=== PATIENT | male | born 1985 | race Caucasian/White ===

== ENCOUNTER 2023-03-29 10:57 | Outpatient (AMB) | payer OTHER, SELFPAY ==
--- NOTE | 2023-03-29 10:59 | MHC.OFFVIS ---
Intake Intake Visit Reasons: Testicular pain Intake Note: NEW Patient presents today to established treatment for: Testicular Pain Meds- None Allergies to Antibiotic- No Known Allergies Blood Thinner- None Patient Symptoms: Patient stated he has left testicular pain Tube Builder Required: No Accompanied by: Self / Same As Patient Allergies NKDA Allergy (Unknown, Uncoded 03/29/23 11:11) Unknown Medication List - Last Reconciled 03/29/23 by Brandon Mcnamara MD No Known Home Meds HPI HPI Comments History of Present Illness Details Hira is a 37-year-old male who is here for evaluation with complaints of testicular pain. He denies history of STDs, he states had 1 episode of gross hematuria about 8 years ago and was seen in the emergency room and had CT scan imaging which was within normal limits. Was told it was related to running, at that time he had been running a few miles daily. He denies prior UTIs or urethritis. Has history of vasectomy about 2017 Dr. Villegas, describes some mild swelling postoperatively which resolved. He states that the testicular pain started summer dull ache which is intermittent left greater than right. Urinalysis negative leukocytes negative blood Examination: Testicles palpated no discrete masses palpated no signs of infection Plan scrotal ultrasound [facility] Medical History Thoracic back pain Sinusitis Throat irritation Hypercholesterolemia Tinea corporis Paresthesia Surgical History Hx of LASIK History of vasectomy History of wisdom tooth extraction Family History Father Hypercholesterolemia HTN (hypertension) Mother No problems noted. 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 Review of Systems Const All systems reviewed & are unremarkable except as noted in HPI and below Reports no additional complaints Eyes Reports no additional complaints ENT Reports no additional complaints Card Denies dyspnea Resp Denies cough and Denies dyspnea GI Reports no additional complaints Musc Reports no additional complaints Skin/Breast Denies rash and Denies unusual bruising Neuro Reports no additional complaints Psych Reports no additional complaints Endo Reports no additional complaints Mc/Lymph Reports no additional complaints Aller/Immun Reports no additional complaints Physical Exam Const General: healthy appearing, no acute distress and well developed Orientation/consciousness: patient oriented x3 HEENT Head: Yes normocephalic and Yes atraumatic Eyes Conjunctivae: conjunctivae normal Neck Neck: Yes normal visual inspection Chest Chest palpation & inspection: normal inspection of the chest Resp Effort & Inspection: normal respiratory effort Cardio Rate: regular rate GI Inspection: Yes normal to inspection Palpation (GI): Soft to palpation Other: Bilateral Testicles nontender to palpation Penis: normal penis and circumcised Scrotum: scrotum normal Skin General skin exam: no rashes or lesions noted Neuro General: patient oriented x3 Extrem General: No pedal edema Psych Appearance: grossly normal Affect: normal affect Results AMB Urinalysis, Automated UA Leukoctes 0 Abilio/uL Last Edit by Sho Brown [facility] on 03/29/23 11:23 UA Nitrite Negative Last Edit by Sho Brown [facility] on 03/29/23 11:23 UA Urobilinogen 0.2 mg/dL Last Edit by Sho Brown [facility] on 03/29/23 11:23 UA Protein 0 mg/dL Last Edit by Sho Brown [facility] on 03/29/23 11:23 UA pH 6.0 Last Edit by Sho Brown [facility] on 03/29/23 11:23 UA Blood 0 Salo/uL Last Edit by Sho Brown [facility] on 03/29/23 11:23 UA Specific [place] 1.015 Last Edit by Sho Brown [facility] on 03/29/23 11:23 UA Ketone Negative Last Edit by Sho Brown [facility] on 03/29/23 11:23 UA Bilirubin 0 mg/dL Last Edit by Sho Brown [facility] on 03/29/23 11:23 UA Glucose 0 mg/dL Last Edit by Sho Brownjohnnie Brown [facility] on 03/29/23 11:23 Results Reviewed Results Reviewed: Laboratory Last Values Urine pH (Auto) 6.0 03/29/23 11:21 Specific [place] (Auto) 1.015 03/29/23 11:21 Urine Protein (Auto) 0 mg/dL 03/29/23 11:21 Glucose (UA)(Auto) 0 mg/dL 03/29/23 11:21 Urine Ketones (Auto) Negative 03/29/23 11:21 Urine Blood (Auto) 0 Salo/uL 03/29/23 11:21 Urine Nitrite (Auto) Negative 03/29/23 11:21 Urine Bilirubin (Auto) 0 mg/dL 03/29/23 11:21 Urine Urobilinogen (Auto) 0.2 mg/dL 03/29/23 11:21 Leukocyte Esterase (Auto) 0 Abilio/uL 03/29/23 11:21 Assessment & Plan Assessment & Plan (1) Testicular pain: Code(s): N50.819 - Testicular pain, unspecified Plan Scrotal ultrasound follow-up post Orders: Orders US scrotum Today N50.819 - Testicular pain, unspecified AMB Urinalysis Automated Today R33.9 - Retention of urine, unspecified Patient Instructions: The patient had an opportunity to ask questions regarding treatment plan. All questions were answered. Laboratory studies and physical exam results were discussed and reviewed in detail. No major barriers to understanding were identified. The patient expressed understanding and agreement with the above treatment plan. The patient is aware they should contact our office by phone for worsening of their current condition or the appearance of new symptoms. Compliance is encouraged with any medications and followup testing that is ordered. It is a privilege to be allowed the opportunity to participate in the urologic care of your patient. If you have any questions or concerns regarding treatment for the above conditions please do not hesitate to contact me. The office telephone contact is [phone]. This note is constructed in part using voice recognition software. While every effort has been made to ensure accuracy drug and alcohol treatment specialist errors may have been included. Yours sincerely, Brandon Mcnamara MD Coding Level of Care Code New Pt Level 3 (66772) Diagnoses Testicular pain N50.819
== END 2023-03-29 11:39 | disposition home or self-care (01) ==
PROVIDERS: PCP Internal Medicine; Visit Provider Urology
DX: N50.819 Testicular pain, unspecified (principal); R33.9 Retention of urine, unspecified
CPT/HCPCS: 99203

== ENCOUNTER → 2023-03-29 10:57 | Outpatient (BNVA) | payer OTHER, SELFPAY | PROVIDERS: PCP Internal Medicine; Visit Provider Urology | DX: N50.812 Left testicular pain (principal); N50.811 Right testicular pain; R33.9 Retention of urine, unspecified | CPT/HCPCS: 81003; 99202 ==

== ENCOUNTER 2023-07-06 13:00 | Outpatient (REF) | payer OTHER, SELFPAY ==
--- NOTE | ~2023-07-06 | US_ITS ---
EXAMINATION: US SCROTUM CLINICAL INFORMATION: Testicular pain, unspecified. COMPARISON: None available. TECHNIQUE: A sonogram of the scrotum was performed assessing andrade-scale appearance and color Doppler flow. Spectral Doppler analysis of the arterial and venous flow were performed in the testes bilaterally. FINDINGS: RIGHT: Right testicle measures 4.8 x 2.3 x 3.2 cm, volume 18.4 mL. No focal testicular parenchymal lesions are visualized. Spectral Doppler analysis of the arterial and venous flow is normal in the right testis. Right epididymal head is normal in size. No right hydrocele or varicocele is seen. Right epididymal Doppler flow is normal. LEFT: Left testicle measures 4.5 x 1.9 x 2.8 cm, volume 12.5 mL. No focal testicular parenchymal lesions are visualized. Spectral Doppler analysis of the arterial and venous flow is normal in the left testis. Left epididymal head is normal in size. No left hydrocele or varicocele is seen. Left epididymal Doppler flow is normal. US/US scrotum IMPRESSION: Unremarkable exam. Urology consultation recommended for further management of testicular pain.
== END 2023-07-06 13:01 | disposition home or self-care (01) ==
LOC: HO.US 13:00
PROVIDERS: PCP Internal Medicine; Visit Provider Urology
DX: N50.819 Testicular pain, unspecified (principal)
CPT/HCPCS: 76870

== ENCOUNTER 2024-06-06 15:31 | Outpatient (AMB) | payer OTHER, SELFPAY ==
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
[2024-06-06 15:43] VITALS: BP 132/82; PULSE 77; RESP 14; TEMP 36.5; O2SAT 99; BMI 28.7
== END 2024-06-06 16:13 | disposition home or self-care (01) ==
LOC: HO.HMCSH 15:31
PROVIDERS: PCP Internal Medicine; Visit Provider Internal Medicine
DX: R22.0 Localized swelling, mass and lump, head (principal); R22.1 Localized swelling, mass and lump, neck

== ENCOUNTER → 2024-06-06 15:31 | Outpatient (BNVA) | payer OTHER, SELFPAY | PROVIDERS: PCP Internal Medicine; Visit Provider Internal Medicine | DX: R22.0 Localized swelling, mass and lump, head (principal); R22.1 Localized swelling, mass and lump, neck; H53.8 Other visual disturbances | CPT/HCPCS: 96127; 99202 ==

== ENCOUNTER 2024-07-05 13:52 | Outpatient (REF) | payer OTHER, SELFPAY ==
--- NOTE | ~2024-07-05 | US_ITS ---
CLINICAL HISTORY: R59.0 - Localized enlarged lymph nodes US of the right submandibular region Comparison: None Findings: There is a hypoechoic 7 mm x 3 mm x 6 mm focus within the area of clinically palpable abnormality with possible fatty hilum. Impression: Probable normal submandibular lymph node. This document has been electronically signed by: Kelley Patel MD on 07/05/2024 16:04:00
== END 2024-07-05 13:53 | disposition home or self-care (01) ==
LOC: HO.US 13:52
PROVIDERS: PCP Internal Medicine; Visit Provider Internal Medicine
DX: R59.0 Localized enlarged lymph nodes (principal)
CPT/HCPCS: 76536

== ENCOUNTER → 2024-07-05 13:55 | Outpatient (BNV) | payer OTHER, SELFPAY | PROVIDERS: PCP Internal Medicine; Visit Provider Radiology Diagnostic Radiology | DX: R59.0 Localized enlarged lymph nodes (principal) | CPT/HCPCS: 76536 ==

== ENCOUNTER 2024-09-05 10:36 | Outpatient (AMB) | payer OTHER, SELFPAY ==
[2024-09-05 10:42] VITALS: BP 124/96; PULSE 63; RESP 16; TEMP 36.6; O2SAT 98; BMI 29.2
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
== END 2024-09-05 11:29 | disposition home or self-care (01) ==
LOC: HO.HMCSH 10:36
PROVIDERS: PCP Internal Medicine; Visit Provider Internal Medicine
DX: H54.7 Unspecified visual loss (principal)

== ENCOUNTER → 2024-09-05 10:36 | Outpatient (BNVA) | payer OTHER, SELFPAY | PROVIDERS: PCP Internal Medicine; Visit Provider Internal Medicine | DX: M54.6 Pain in thoracic spine (principal); H53.8 Other visual disturbances | CPT/HCPCS: 99212 ==